=== PATIENT | female | born 1960 | race Caucasian/White ===

== ENCOUNTER 2018-03-06 13:50 | Observation (INO) | payer OTHER ==
[~2018-03-06] VITALS: Ht 167.6 cm; Wt 97.0 kg
[2018-03-06] VITALS (13 sets, daily range): BP systolic 104–154; BP diastolic 58–85
[2018-03-06 15:20] LABS: HEMATOCRIT 41.9 % (37.0-47.0); HEMOGLOBIN 14.2 gm/dL (12.0-15.0); MCH 32.4 pg (26.0-34.0); MCHC 33.9 g/dL (28.0-37.0); MCV 95.8 fL (80.0-100.0); MPV 8.2 fl. (7.2-11.1); RBC 4.37 mil/uL (4.20-5.00); RDW-CV 13.8 % (10.5-14.5)
[2018-03-06] MEDS ORDERED: ASPIR 8181 MG PO (15:29)
[2018-03-06] MEDS ORDERED: SYNTHROID50 MCG PO (15:30)
[2018-03-06] MEDS ORDERED: LIPITOR80 MG PO (15:30)
[2018-03-06] MEDS ORDERED: AMITRIPTYLINE H10 M3 PO (15:30)
[2018-03-06] MEDS ORDERED: METFORMIN HCL500 MG PO (15:30)
[2018-03-06] MEDS ORDERED: NEURONTIN600 MG PO (15:31)
[2018-03-06] MEDS ORDERED: CYMBALTA60 MG PO (15:31)
[2018-03-06] MEDS ORDERED: PLAVIX 75 MG TA75 M1 PO (15:31)
[2018-03-06] MEDS ORDERED: LOPRESSOR25 PO (15:32)
[2018-03-06] MEDS ORDERED: FISH OIL 1,001000 M2 PO (15:32)
[2018-03-06 15:33] LABS: ANION GAP 8 mmol/L (7-16); BUN 9 mg/dL (7-18); CALCIUM 9.1 mg/dL (8.5-10.1); CHLORIDE 101 mmol/L (98-107); CO2 26 mmol/L (21-32); CREATININE 0.8 mg/dL (0.6-1.3); GLUCOSE 117 mg/dL (70-99); POTASSIUM 3.4 mmol/L (3.5-5.1); SODIUM 135 mmol/L (136-145)
[2018-03-06 15:34] LABS: APTT 21.9 Seconds (25.0-31.3); PROTIME 9.9 Seconds (9.20-11.50)
[2018-03-06 15:37] LABS: ALBUMIN 3.6 g/dL (3.4-5.0); ALKALINE PHOSPHATASE 142 U/L (46-116); CHOLESTEROL 130 mg/dL (<200); HDL CHOLESTEROL 43 mg/dL (>40); LDL CHOLESTEROL 49 mg/dL (<100); SGOT 29 U/L (15-37); SGPT 49 U/L (30-65); TOTAL BILIRUBIN 0.5 mg/dL (<0.1-1.0); TOTAL PROTEIN 7.3 g/dL (6.4-8.2); TRIGLYCERIDE 190 mg/dL (<150); VLDL 38 mg/dL (<40)
[2018-03-06 15:39] LABS: SERUM ASSESSMENT Clear
[2018-03-06 16:36] LABS: CALCIUM 9.5 mg/dL (8.5-10.1); CREATININE 0.9 mg/dL (0.6-1.3); POTASSIUM 3.4 mmol/L (3.5-5.1)
--- NOTE | 2018-03-06 17:07 | EKG ---
[place] [address] ELECTROCARDIOGRAM REPORT Name: JACKIE PACK Room: [address] ADM IN M.R.#: [id number] Admission: 03/06/18 Attend Phys: Harry Garza MD Discharge: Date of : 62 Report #: [id number] THIS REPORT FOR: //name// [facility] Test Date: 2018-03-06 Test Time: 15:16:39 Pat Name: JACKIE PACK Department: Room: [facility] Gender: F Tools Administrator: AMBER : 1960 Requested By: Jason Choudhury Order Number: [id number] Jonna MD: Harry Garza Measurements Intervals [place] Rate: 68 P: 62 AL: 136 QRS: 35 QRSD: 96 T: 56 QT: 408 QTc: 434 Interpretive Statements Sinus rhythm No previous ECG available for comparison Electronically Signed On 03-06-2018 17:07:29 CDT by Harry Garza [email or web address] <ELECTRONICALLY SIGNED> By: Harry Garza MD, [facility] 03/06/18 1707 1516 1516 Harry Garza MD, FACC /EPI
[2018-03-06 18:39] LABS: CK-MB MASS 0.8 ng/mL (<0.5-3.6); TROPONIN-I LEVEL <0.06 ng/mL (<0.06)
--- NOTE | 2018-03-06 19:20 | NUR ---
RECEIVED REPORT FROM LINEWORKER AND ASSUMED CARE OF PT @ 2906.PT IS A/OX4,VSS,TRACING SR ON THE MONITOR.ASSESSMENT CHARTED.IV PATENT WITH FLUIDS INFUSING PER ORDERS.HAYS SECURE AND PATENT.PT IS CALM AND COOPERATIVE WITH NO C/O PAIN AT TIME OF ASSESSMENT.PT IS BEDREST UNTIL 0100.PT INFORMED OF PLAN OF CARE AND COMMUNICATES UNDERSTANDING.POST CATH VITALS TAKEN.CATH SITE CLEAN,DRY,AND INTACT.HOURLY ROUNDING COMPLETED FOR PT SAFETY.CALL LIGHT AND FALL PRECAUTIONS IN PLACE.WILL CONTINUE TO MONITOR FOR DURATION OF SHIFT.
[2018-03-07] VITALS: BP 122/58
--- NOTE | 2018-03-07 03:01 | NUR ---
ASSUMED CARE OF PT AT 1900 PT ALERT AND ORIENTED X4 VS AND ASSESSMENT STABLE PT RUNNING NSR ON THE MONITOR. PT R GROIN CATH SITE CDI WITHOUT DRANAGE SWELLING OR HEMATOMA POSITIVE CMS CHECKS TO RLE. PT DENIED ANY COMPLAINTS AND SLEPT THROUGH THE NIGHT. WILL CONTINUE PLAN OF CARE.
[2018-03-07 04:00] VITALS: BP 152/74
[2018-03-07 05:18] LABS: HEMATOCRIT 38.2 % (37.0-47.0); HEMOGLOBIN 12.8 gm/dL (12.0-15.0); MCH 32.4 pg (26.0-34.0); MCHC 33.6 g/dL (28.0-37.0); MCV 96.4 fL (80.0-100.0); MPV 8.4 fl. (7.2-11.1); RBC 3.96 mil/uL (4.20-5.00); RDW-CV 14.2 % (10.5-14.5); WBC 6.8 thou/uL (4.0-11.0)
[2018-03-07 05:40] LABS: CALCIUM 8.3 mg/dL (8.5-10.1); CREATININE 0.7 mg/dL (0.6-1.3); POTASSIUM 3.7 mmol/L (3.5-5.1); TOTAL BILIRUBIN 0.7 mg/dL (<0.1-1.0); TOTAL PROTEIN 6.3 g/dL (6.4-8.2); TROPONIN-I LEVEL 0.15 ng/mL (<0.06)
[2018-03-07 08:00] VITALS: BP 124/70
--- NOTE | 2018-03-07 08:35 | NUR ---
RECEIVED REPORT FROM SITA AND ASSUMED CARE OF PT @ 7848.PT IS A/O X4,VSS,TRACING SR ON THE MONITOR.ASSESSMENT CHARTED.IV PATENT WITH IVF INFUSING PER ORDERS.HAYS REMOVED DURING INSET CUTTER.CATH SITE RIGHT GROIN DRY AND INTACT WITH BLOOD ON GAUZE.NO HEMATOMA.CARDIOLOGY ASSESSED SITE AND OK PT FOR DISCHARGE.PT HAS NOT BEEN UP SINCE REMOVED FROM BEDREST.PT IS UP SBA ASSIST UNTIL FURTHER EVALUTAION. PT IS CALM AND COOPERATIVE WITH NO C/O PAIN AT TIMEO F ASSESSMENT.CALL LIGHT AND FALL PRECAUTIONS IN PLACE. WILL CONTINUE TO MONITOR.
[2018-03-07 08:46] VITALS: BP 124/70
[2018-03-07 10:22] VITALS: BP 124/70
[2018-03-07] MEDS ORDERED: BRILINTA90 MG PO (10:28)
[2018-03-07 11:45] VITALS: BP 127/48
--- NOTE | 2018-03-07 12:02 | EKG ---
[place] [address] ELECTROCARDIOGRAM REPORT Name: JOLENE PACKNE Room: [address] M.R.#: [id number] Admission: 03/06/18 Attend Phys: Harry Garza MD Discharge: Date of : 62 Report #: [id number] THIS REPORT FOR: //name// [facility] Test Date: 2018-03-06 Test Time: 18:18:55 Pat Name: JACKIE PACK Department: Room: [address] Gender: F Property Officer: RENETTA : 1960 Requested By: Jason Choudhury Order Number: [id number] Jonna MD: Tong Driscoll Measurements Intervals [place] Rate: 68 P: 74 DC: 153 QRS: 33 QRSD: 94 T: 51 QT: 426 QTc: 454 Interpretive Statements Sinus rhythm Abnormal R-wave progression, early transition Compared to ECG 03/06/2018 15:16:39 No significant changes Electronically Signed On 03-07-2018 12:02:31 CDT by Tong Driscoll [email or web address] <ELECTRONICALLY SIGNED> By: Tong Driscoll MD, [facility] 03/07/18 1202 17 17 Tong Driscoll MD, [facility] /EPI
--- NOTE | 2018-03-07 12:11 | EKG ---
[place] [address] ELECTROCARDIOGRAM REPORT Name: JOLENE PACKNE Room: [address] M.R.#: [id number] Admission: 03/06/18 Attend Phys: Harry Garza MD Discharge: Date of : 62 Report #: [id number] THIS REPORT FOR: //name// [facility] Test Date: 2018-03-07 Test Time: 08:00:04 Pat Name: JACKIE PACK Department: Room: [address] Gender: F Restuarant Crew Worker: : 1960 Requested By: Jason Choudhury Order Number: [id number] Jonna MD: Tong Driscoll Measurements Intervals [place] Rate: 96 P: 68 NH: 131 QRS: 18 QRSD: 100 T: 60 QT: 363 QTc: 459 Interpretive Statements Sinus rhythm Abnormal R-wave progression, early transition Compared to ECG 03/06/2018 15:16:39 No significant changes Electronically Signed On 03-07-2018 12:11:07 CDT by Tong Driscoll [email or web address] <ELECTRONICALLY SIGNED> By: Tong Driscoll MD, [facility] 03/07/18 1211 08 08 oTng Driscoll MD, [facility] /EPI
--- NOTE | 2018-03-07 12:57 | NUR ---
ECHO COMPLETED. PT OK FOR DISCHARGE.PAPERWORK COMPLETED AND GIVEN TO PT.SCRIPTS GIVEN WITH EDUCATION.CARDIOLOGY GAVE SAMPLES AND COUPON CARDS.IV REMOVED.HEART MONITOR REMOVED AND RETURNED TO NURSING STATION.CATH SITE DRESSING CHANGED.CLEAN,DRY, AND INTACT.ALL PERSONAL BELONGINGS PACKED AND TAKEN WITH PT.PT WALKED OUT BY NURSING STAFF TO PERSONAL VEHICLE.
--- NOTE | 2018-03-07 13:14 | 2DMMODE ---
[place] [address] 2 D/M-MODE ECHOCARDIOGRAM Name: JACKIE PACK Room: [address] Nancy Lai#: [id number] Admission: 03/06/18 Attend Phys: Harry Garza, Discharge: 03/07/18 Date of : 62 Date of Service: 03/07/18 1314 Report #: [id number] THIS REPORT FOR: //name// APPROVED REPORT Study performed: 03/07/2018 11:23:56 EXAM: Comprehensive 2D, Doppler, and color-flow Echocardiogram Patient Location: In-Patient Room #: [facility] Status: routine BSA: 2.05 HR: 73 bpm BP: 124/70 mmHg Rhythm: NSR Other Information Study Quality: Good Indications CAD Chest Pain 2D Dimensions IVSd: 11.20 (7-11mm) LVOT Diam: 18.69 (18-24mm) LVDd: 41.57 mm PWd: 8.37 (7-11mm) Ascending Ao: 32.09 (22-36mm) LVDs: 27.63 (25-40mm) Aortic Root: 28.43 mm Volumes Left Atrial Volume (Systole) LA ESV Index: 26.80 mL/m2 Aortic Valve AoV Peak Milton.: 1.77 m/s AO Peak Gr.: 12.48 mmHg LVOT Max P.16 mmHg AO Mean Gr.: 6.34 mmHg LVOT Mean P.79 mmHg LVOT Max V: 1.34 m/s AO V2 VTI: 36.60 cm LVOT Mean V: 0.91 m/s TEO (VTI): 2.10 cm2 LVOT V1 VTI: 28.05 cm Mitral Valve E/A Ratio: 1.03 MV Decel. Time: 201.28 ms [facility] [address] [place] [address] 2 D/M-MODE ECHOCARDIOGRAM Name: JACKIE PACK Room: [address]#: [id number] Admission: 03/06/18 Attend Phys: Harry Garza, Discharge: 03/07/18 Date of : 62 Date of Service: 03/07/18 1314 Report #: [id number] MV E Max Milton.: 1.06 m/s MV PHT: 58.37 ms MVA (PHT): 3.77 cm2 TDI E/Lateral E': 8.15 E/Medial E': 8.83 Medial E' Milton.: 0.12 m/s Lateral E' Milton.: 0.13 m/s Pulmonary Valve PV Peak Milton.: 1.05 m/s PV Peak Gr.: 4.42 mmHg Tricuspid Valve RAP Estimate: 5.00 mmHg TR Peak Gr.: 20.23 mmHg RVSP: 25.00 mmHg PA Pressure: 25.00 mmHg Left Ventricle The left ventricle is normal size. There is normal LV segmental wall motion. There is normal left ventricular wall thickness. Left ventricular systolic function is normal. The left ventricular ejection fraction is within the normal range. LVEF is 60-65%. The left ventricular diastolic function is normal. Right Ventricle The right ventricle is normal size. The right ventricular systolic function is normal. Atria The left atrium size is normal. The right atrium size is normal. Aortic Valve Mild aortic valve sclerosis. No aortic regurgitation is present. There is no aortic valvular stenosis. Mitral Valve The mitral valve is normal in structure. There is no mitral valve regurgitation noted. No evidence of mitral valve stenosis. Tricuspid Valve The tricuspid valve is normal in structure. Trace tricuspid regurgitation. No pulmonary hypertension. Pulmonic Valve The pulmonary valve is normal in structure. There [place] [address] 2 D/M-MODE ECHOCARDIOGRAM Name: JACKIE PACK [address]: [address]#: [id number] Admission: 03/06/18 Attend Phys: Harry Garza, Discharge: 03/07/18 Date of : 62 Date of Service: 03/07/18 1314 Report #: [id number] valvular regurgitation. Great Vessels The aortic root is normal in size. IVC is not well visualized. Pericardium There is no pericardial effusion. <Conclusion> Left ventricular systolic function is normal. The left ventricular ejection fraction is within the normal range. <ELECTRONICALLY SIGNED> By: Tong Driscoll MD, FACC 03/07/18 1314 1314 1314 Tong Driscoll MD, FACC /INF
--- NOTE | 2018-03-07 17:39 | H ---
[place] [address] HISTORY AND PHYSICAL Name: JACKIE PACK Room: [address] Nancy Lai#: [id number] Admission: 03/06/18 Attend Phys: Harry Garza MD Discharge: 03/07/18 Date of : 62 Report #: [id number] THIS REPORT FOR: //name// CC: MOHSEN Graza INDICATION: Unstable angina. HISTORY OF PRESENT ILLNESS: The patient is a very pleasant 57-year-old white female with known coronary artery disease. Two years ago, prior to some cervical spinal surgery, she was noted to have an abnormal stress test, prompting catheterization. She was found to have an 80% proximal right coronary artery stenosis. She did not at that time undergo intervention as she was scheduled to have surgery and felt to be stable enough for her surgery. She was lost in followup. Subsequent to that, she did not have any intervention. For the last several weeks, she has been having progressive chest discomfort and back discomfort. Cardiac risk factors include family history of atherosclerotic coronary artery disease, hyperlipidemia, hypertension, borderline diabetes and tobacco use. PAST MEDICAL HISTORY: 1. Coronary artery disease. 2. Type 2 diabetes mellitus. 3. Hypertension. 4. Hyperlipidemia. 5. Hypothyroidism. 6. History of TIA. 7. Cervical spinal fusion 2016. 8. Peripheral neuropathy. FAMILY HISTORY: The patient's father of a heart attack at age 41. The patient's mother has a history of mitral valve replacement. The patient's oldest brother has a history of hypertension and stroke. SOCIAL HISTORY: The patient smokes a pack of cigarettes daily for the past 40 years. Drinks alcohol occasionally. CURRENT MEDICATIONS: Aspirin 81 mg daily, levothyroxine 50 mcg daily, amitriptyline 50 mg daily, metformin 500 mg daily, Lipitor 80 mg daily, Plavix 75 mg daily, Neurontin 600 mg b.i.d., Cymbalta 60 mg daily, furosemide 20 mg daily, metoprolol tartrate 75 mg b.i.d., fish oil daily, potassium supplement daily. ALLERGIES: PENICILLIN, WHICH CAUSES RESPIRATORY DISTRESS. REVIEW OF SYSTEMS: She notes some slight weight gain with [place] [address] HISTORY AND PHYSICAL Name: JACKIE PACK Room: [address] Ming#: [id number] Admission: 03/06/18 Attend Phys: Harry Garza MD Discharge: 03/07/18 Date of : 62 Report #: [id number]. She admits some cough and occasional wheezing. She denies orthopnea or paroxysmal nocturnal dyspnea. She reports chest discomfort as outlined above. She denies palpitations. She denies edema. She reports some occasional heartburn, but no nausea, vomiting or diarrhea. She reports easy bruising. She denies any history of blood clots. A 14-point review of systems otherwise unremarkable. PHYSICAL EXAMINATION: VITAL SIGNS: Stable. Blood pressure 109/68, pulse 62 and regular. GENERAL: This is a pleasant lady in no distress. Mood and affect appropriate. HEENT: Extraocular muscles intact. Mucous membranes moist. NECK: Shows no jugular venous distention. There are no carotid bruits. CHEST: Reveals clear lung wagner without wheezes, rales or rhonchi. CARDIOVASCULAR: Reveals a regular rhythm with normal S1 and S2. I do not appreciate gallop or murmur. ABDOMEN: Reveals normal bowel sounds. The abdomen is soft, nontender. EXTREMITIES: Shows no edema. Peripheral pulses are 2+ and easily palpable. SKIN: Warm and dry. IMPRESSION AND RECOMMENDATIONS: 1. Coronary artery disease with symptoms to suggest unstable angina. Will undergo cardiac catheterization with probable intervention. Continue daily aspirin. Continue Plavix. 2. Hyperlipidemia, continue Lipitor 80 mg daily. 3. Hypertension, controlled on current regimen. 4. Diabetes per primary physician. 5. Smoking cessation encouraged for tobacco use. <ELECTRONICALLY SIGNED> By: Harry Garza MD, FACC 03/07/18 1739 1630 1734Harry Garza MD, FACC /nt
--- NOTE | 2018-03-08 10:49 | CARD ---
[address] [address] CARDIAC CATH REPORT Name: JACKIE PACK Room: [address] Nancy Lai#: [id number] Admission: 03/06/18 Attend Phys: Harry Garza MD Discharge: 03/07/18 Date of : 62 Report #: [id number] THIS REPORT FOR: //name// APPROVED REPORT Study performed: 03/06/2018 16:02:49 Patient Details Patient Status: In-Patient Room #: The patient is a 57 year-old female Event Personnel Jason Choudhury Sheet Music Salesperson, Lois Stewart RN Psychometrician, Brandt Plasencia (Tolu) Luisa Pulido Jessica RTR Monitor, Ale Jones BUS SYSTEM OPERATOR Monitor Procedures Performed Left Heart Cath w/or w/o Coronaries; percutaneous coronary intervention to the right coronary artery Indication Unstable angina Risk Factors Hypercholesterolemia Admission/Lab Medications/Medications given during procedure Aspirin, Platelet Aff. Inhib., Angiomax bolus and infusion Procedure Narrative The patient was brought electively to the Cardiac Catheterization Laboratory and was prepped and draped in a sterile manner. The right femoral was infiltrated with 2% Lidocaine subcutaneous anesthesia. A 6 Fr [place] sheath was inserted into the right femoral artery. Coronary angiography was performed using coronary diagnostic catheters. The right coronary system was accessed and visualized with a Diagnostic JR4 catheter. The left coronary system was accessed and visualized with a Diagnostic JL4 catheter. The left ventricle was accessed and visualized with a Diagnostic Straight Pigtail catheter. Left ventricular/Aortic Valve gradient assessed via catheter pullback. Left ventriculogram was performed in LASSITER projection. Pre-demployment femoral angiogram was performed . Closure device was deployed with a Fr 8Fr Angioseal. [place] [address] CARDIAC CATH REPORT Name: JACKIE PACK Room: [address]#: [id number] Admission: 03/06/18 Attend Phys: Harry Garza MD Discharge: 03/07/18 Date of : 62 Report #: [id number] Sedation start time: 16:23 Case end Time: 17:36 Fentanyl 75 mcg Versed 4 mg Fluoro Time: 16.7 minutes Dose: DAP 026880 cGycm2 1885 mGy Contrast Type and Amount: Visipaque 460 ml Coronary Angiography The patient's coronary anatomy is co- dominant. Diagnostic Cath Left Main 0% narrowing LAD 50% mid LAD narrowing Circumflex 40% midcircumflex narrowing with 50% distal stenosis Right Coronary Modest size codominant vessel with 80% tubular proximal stenosis and 90% mid vessel stenosis Left Ventriculography The left ventricle is normal in size with normal contractility. The left ventricular ejection fraction is estimated to be 65%. Left ventricular wall motion abnormalities are not present. There is no mitral insufficiency. Hemodynamics The aortic pressure is 149/73 mmHg with a mean of 101 mmHg. The left ventricular pressure is 146/8 mmHg with a mean of mmHg. The left ventricular end diastolic pressure is 10 mmHg. There was no gradient across the aortic valve upon pullback. PCI Technique Lesion Anticoagulation was achieved with Angiomax. Patient was preloaded with Angiomax IV 14 mg per kg. Percutaneous coronary intervention was performed on the mid right coronary artery. The lesion stenosis prior to intervention was 90% with JEAN PIERRE 3 flow. A 6Fr JR 4.0 SH Guide Catheter was used to engage the ostium. A IG: ProwaterFlex 180CM Interventional Guidewire was used to cross the lesion. BALLOON DILATION A Balloon catheter Mini Trek RX 2.0 X 12 was inserted and inflated up to 14.00atm for 11seconds. Additional Inflation: 14.00atm for 10seconds. Additional Inflation: 14.00atm for 11seconds. STENT DEPLOYMENT A drug-eluting stent [place] RX Stent 2.0X18mm was inserted and inflated up to 12atm for 18seconds. Additional Inflation: 16[place] [address] CARDIAC CATH REPORT Name: JACKIE PACK Room: [address] Nancy M.RPadmini#: [id number] Admission: 03/06/18 Attend Phys: Harry Garza MD Discharge: 03/07/18 Date of : 62 Report #: [id number] 11seconds. Additional Inflation: 18atm for 12seconds. POST STENT DEPLOYMENT BALLOON DILATION A Balloon catheter NC Trek RX 2.25x12 was inserted and inflated up to 15.00atm for 7seconds. Additional Inflation: 16.00atm for 8seconds. Final angiography reveals 10 % stenosis with JEAN PIERRE 3 flow. BALLOON DILATION A Balloon catheter was inserted and inflated up to 12.00atm for 13seconds. Additional Inflation: 12.00atm for 10seconds. STENT DEPLOYMENT A drug-eluting stent Jono RX Stent 2.0X18mm was inserted and inflated up to 8.00atm for 12seconds. Additional Inflation: 10.00atm for 10seconds. Additional Inflation: 11.00atm for 8seconds. PCI Technique Lesion 2 Percutaneous Coronary Intervention was performed on the proximal right coronary artery. The lesion stenosis prior to intervention was 80% with JEAN PIERRE 3 flow. Stent Deployment A drug-eluting stent [place] RX Stent 2.0X30mm was inserted and inflated up to Problemsatm for 15seconds. Post Stent Deployment Balloon Dilation A Balloon catheter NC Trek RX 2.25x12 was inserted and inflated up to 18atm for 15seconds. Final angiography reveals 10 % stenosis with JEAN PIERRE 3 flow. Comments Proximalmid right coronary artery was heavily calcified requiring significant lesion preparation prior to stent deployment Conclusion #1 significant coronary artery disease characterized by the following: A 50% mid LAD narrowing B 40% mid circumflex narrowing with 50% [place] [address] CARDIAC CATH REPORT Name: JACKIE PACK Room: [address] Nancy Lai#: [id number] Admission: 03/06/18 Attend Phys: Harry Garza MD Discharge: 03/07/18 Date of : [birth year] Report #: [id number] C modest size codominant right coronary artery with 80% tubular proximal calcified stenosis and 90% mid vessel stenosis #2 normal left ventricular systolic function, estimated ejection fraction being 65% #3 mild systemic systolic hypertension #4 successful percutaneous coronary intervention with deployment of sequential drug-eluting stents at the sites of 80% proximal and 90% mid vessel stenosis of the right coronary artery with 10% residual narrowing at both sites following stent deployment and JEAN PIERRE-3 flow to the distal vessel. Recommendations Cardiac Risk Reduction Program Aggressive Medical Therapy Medications Administered Aspirin (any) Ticagrelor Diagnostic Cath Approved by: Jason Choudhury MD Date/Time: 03/08/2018 10:47:01 <ELECTRONICALLY SIGNED> By: Jason Choudhury MD, FACC 03/08/18 1049 1049 1049Jason Choudhury MD, FACC /INF
--- NOTE | 2018-03-10 12:31 | D ---
[address] [address] DISCHARGE SUMMARY Name: JACKIE PACK Room: [address] Nancy Lai#: [id number] Admission: 03/06/18 Attend Phys: Harry Garza MD Discharge: 03/07/18 Date of : 62 Report #: [id number] THIS REPORT FOR: //name// CC: MOHSEN Garza DATE OF SERVICE: 03/07/2018 INDICATION: Unstable angina and coronary artery disease. DISCHARGE DIAGNOSES: 1. Unstable angina. 2. Coronary artery disease. 3. Hypertension. 4. Type 2 diabetes mellitus. 5. Hyperlipidemia. 6. Chronic tobacco use. PROCEDURES DURING THE HOSPITALIZATION: 1. Left and right coronary angiography. 2. Left heart catheterization. 3. Left ventriculography. 4. Percutaneous coronary intervention to the right coronary artery. HOSPITAL COURSE: The patient was brought to the hospital with progressive chest discomfort suggestive of unstable angina. Catheterization revealed 80% proximal to mid right coronary artery narrowing. The patient underwent percutaneous coronary intervention with drug-eluting stent placement to the proximal to mid right coronary artery with excellent result. The patient tolerated the procedure well without complication. At the time of catheterization, she was noted to have normal left ventricular systolic function. She had no complications with the procedure and is being discharged uneventfully. DISCHARGE MEDICATIONS: Will include amitriptyline 50 mg at bedtime, aspirin 81 mg daily, atorvastatin 80 mg daily, Effient 10 mg daily, fish oil 1000 mg daily, Cymbalta 60 mg daily, gabapentin 600 mg b.i.d., levothyroxine 50 mcg daily, Glucophage 500 mg b.i.d., metoprolol tartrate 75 mg b.i.d. DISPOSITION: The patient will follow up with her nurse practitioner in 1-2 weeks and follow up with myself in 2 months. <ELECTRONICALLY SIGNED> By: Harry Garza MD, FACC 03/10/18 1231 0816 1815Microsalee Garza MD, FACC /nt
== END 2018-03-07 13:00 | disposition home or self-care (01) ==
LOC: M.2W 13:50 → M.TBA-CV 14:45 → M.2W 14:45
PROVIDERS: Internal Medicine; Registered Nurse; ADMIT Internal Medicine Cardiovascular Disease
DX: I25.110 Atherosclerotic heart disease of native coronary artery with unstable angina pectoris (principal); E78.5 Hyperlipidemia, unspecified; E11.42 Type 2 diabetes mellitus with diabetic polyneuropathy; I10 Essential (primary) hypertension; E03.9 Hypothyroidism, unspecified; G62.9 Polyneuropathy, unspecified; E78.00 Pure hypercholesterolemia, unspecified; M43.22 Fusion of spine, cervical region; Z79.01 Long term (current) use of anticoagulants; Z79.82 Long term (current) use of aspirin; F17.210 Nicotine dependence, cigarettes, uncomplicated; Z72.89 Other problems related to lifestyle; Z86.73 Personal history of transient ischemic attack (TIA), and cerebral infarction without residual deficits

== ENCOUNTER 2018-11-26 13:14 | Observation (INO) | payer OTHER ==
[2018-11-26] VITALS: BP 117/59
[~2018-11-26] VITALS: Ht 152.4 cm; Wt 94.4 kg
[~2018-11-26 13:14] MED LIST: AMITRIPTYLINE H10 M3 PO; ASPIR 8181 MG PO; BRILINTA90 MG PO; CYMBALTA60 MG PO; FISH OIL 1,001000 M2 PO; LIPITOR80 MG PO; LOPRESSOR25 PO; METFORMIN HCL500 MG PO; NEURONTIN600 MG PO; PLAVIX 75 MG TA75 M1 PO; SYNTHROID50 MCG PO
[2018-11-26 13:18] VITALS: BP 142/75
[2018-11-26 13:48] LABS: ABSOLUTE BASOPHILS 0.1 thou/uL (0.0-0.2); ABSOLUTE EOSINOPHILS 0.3 thou/uL (0.0-0.7); ABSOLUTE LYMPHOCYTES 2.8 thou/uL (0.8-5.3); ABSOLUTE MONOCYTES 0.5 thou/uL (0.0-1.2); BASOPHILS 1.3 %; EOSINOPHILS 3.2 %; HEMATOCRIT 41.9 % (37.0-47.0); HEMOGLOBIN 14.5 gm/dL (12.0-15.0); LYMPHOCYTES 31.8 %; MCH 32.2 pg (26.0-34.0); MCHC 34.6 g/dL (28.0-37.0); MCV 92.9 fL (80.0-100.0); NUCLEATED RBCS 0 /100WBC; PLATELET COUNT* 240 thou/uL (150-400); POLYS 57.7 %; RBC 4.51 mil/uL (4.20-5.00); RDW-CV 14.1 % (10.5-14.5); WBC 8.7 thou/uL (4.0-11.0)
[2018-11-26 13:52] LABS: ANION GAP 12 mmol/L (7-16); BUN 9 mg/dL (7-18); CALCIUM 9.3 mg/dL (8.5-10.1); CHLORIDE 102 mmol/L (98-107); CO2 24 mmol/L (21-32); CREATININE 0.8 mg/dL (0.6-1.3); GLUCOSE 133 mg/dL (70-99); SODIUM 138 mmol/L (136-145)
[2018-11-26 13:54] LABS: PROTIME 10.2 Seconds (9.20-11.50)
[2018-11-26 14:08] LABS: ALBUMIN 3.7 g/dL (3.4-5.0); ALKALINE PHOSPHATASE 167 U/L (46-116); LIPASE 290 U/L (73-393); NT-PRO BRAIN NAT PEPTIDE 103 pg/mL (<300); SGOT 36 U/L (15-37); SGPT 56 U/L (30-65); TOTAL BILIRUBIN 0.6 mg/dL (<0.1-1.0); TOTAL PROTEIN 7.4 g/dL (6.4-8.2); TROPONIN-I LEVEL <0.06 ng/mL (<0.06)
[2018-11-26 15:16] VITALS: BP 144/73
--- NOTE | 2018-11-26 15:19 | EKG ---
[place] [address] ELECTROCARDIOGRAM REPORT Name: JOLENE PACKNE Room: [place] [address] ADM IN [facility]#: [id number] Admission: 11/26/18 Attend Phys: Hannah Bedoya MD Discharge: Date of : 62 Report #: [id number] THIS REPORT FOR: //name// [facility] ED Test Date: 2018-11-26 Test Time: 13:19:29 Pat Name: JACKIE PACK Department: Room: [facility] Gender: Operations Team Leader: [facility] : 1960 Requested By: Wisam Garcia Order Number: [id number] MD: Tong Driscoll Measurements Intervals [place] Rate: 59 P: 80 MN: 147 QRS: 52 QRSD: 93 T: 59 QT: 411 QTc: 408 Interpretive Statements Sinus rhythm Compared to ECG 03/07/2018 08:00:04 No significant changes Electronically Signed On 11-26-2018 15:18:58 CDT by Tong Driscoll [email or web address] <ELECTRONICALLY SIGNED> By: Tong Driscoll MD, [facility] 11/26/18 1518 1319 1319 Tong Driscoll MD, FACC /EPI
--- NOTE | 2018-11-26 17:11 | NUR ---
PATIENT ADMITTED TO THE UNIT AT 1516 FROM ER. AOX4 UPON ARRIVAL. DENIED CHEST PAIN UPON ADMISSION. ADMISSION HISTORY AND ASSESSMENT COMPLETED. DR JOYNER IN TO SEE PATIENT. STATED PATIENT CAN EAT DINNER, BUT WILL BE NPO AFTER MIDNIGHT FOR CARDIAC CATH TOMORROW. NURSE AND PHYSICIAN EDUCATED PATIENT TO NOTIFY STAFF IF CHEST PAIN RETURNS. PATIENT AGREEABLE TO CURRENT PLAN OF CARE. NO NEW CONCERNS NOTED.
[2018-11-26 20:00] VITALS: BP 135/58
[2018-11-27] VITALS (20 sets, daily range): BP systolic 104–147; BP diastolic 53–89
--- NOTE | 2018-11-27 05:18 | NUR ---
PT SLEPT WELL OVERNIGHT. DENIES CHEST PAIN, CO MILD ACHE IN LEFT ARM CONTINUES. TELE SR, AM LABS DRAWN. HS ACCUCHECK. VSS. HAS BEEN NPO SINCE MIDNIGHT FOR CARDIAC CATH TODAY. LFA SL, IVF TO BE STARTED THIS MORNING. AOX4,UP AD ABI. ABLE TO USE CALL LITE AND MAKE NEEDS KNOWN.
[2018-11-27 08:44] LABS: HEMATOCRIT 40.1 % (37.0-47.0); HEMOGLOBIN 13.7 gm/dL (12.0-15.0); MCH 31.9 pg (26.0-34.0); MCHC 34.2 g/dL (28.0-37.0); MCV 93.3 fL (80.0-100.0); MPV 9.1 fl. (7.2-11.1); RBC 4.3 mil/uL (4.20-5.00); RDW-CV 13.9 % (10.5-14.5); WBC 6.5 thou/uL (4.0-11.0)
[2018-11-27 09:14] LABS: ANION GAP 11 mmol/L (7-16); BUN 10 mg/dL (7-18); CALCIUM 9.2 mg/dL (8.5-10.1); CHLORIDE 105 mmol/L (98-107); CHOLESTEROL 149 mg/dL (<200); CO2 24 mmol/L (21-32); CREATININE 0.8 mg/dL (0.6-1.3); GLUCOSE 103 mg/dL (70-99); HDL CHOLESTEROL 33 mg/dL (>40); LDL CHOLESTEROL 63 mg/dL (<100); MAGNESIUM 1.9 mg/dL (1.8-2.4); POTASSIUM 3.7 mmol/L (3.5-5.1); SERUM ASSESSMENT Clear; SODIUM 140 mmol/L (136-145); TC:HDL 4.5 Ratio (Not establshd); TRIGLYCERIDE 266 mg/dL (<150); TROPONIN-I LEVEL <0.06 ng/mL (<0.06); VLDL 53 mg/dL (<40)
[2018-11-27] MEDS ORDERED: PROTONIX40 M1 PO (11:19)
--- NOTE | 2018-11-27 11:23 | NUR ---
ASSUMED CARE OF PT AT 0730. PT RESTING IN BED. PT A&0X4, DENIES ANY PAIN OR SHORTNESS OF BREATH AT THIS TIME. DENIES ANY CHEST PAIN. PT TO HAVE HEART CATH TODAY. NPO. CONSENT SIGNED AND PLACED IN FRONT OF CHART. PT TRACING SR ON THE ELECTROENCEPHALOGRAM TECHNOLOGIST. ON RA SAT UPPER 90'S. PT UP AD ABI. IVF. CARDIO CONSULT IN PLACE. PT GOAL FOR TODAY IS HEART CATH AND POSSIBLE DISCHARGE LATER TODAY PENDING CATH RESULTS. AM ASSESSMENT CHARTED. MEDICATIONS PER JUL. PT REPOSITIONS SELF. HOURLY ROUNDING OBSERVED. BED IN LOW POSITION. CALL LIGHT WITHIN REACH. WILL CONTINUE PLAN OF CARE.
--- NOTE | 2018-11-27 12:13 | NUR ---
MET WITH PT TO DISCUSS HOME SITUATION/DC PLANNING. PT LIVES WITH SPOUSE. SHE IS INDEPENDENT AND ACTIVE, USES NO EQUIPMENT. DENIES ANY DC NEEDS. WILL FOLLOW
--- NOTE | 2018-11-27 16:27 | NUR ---
NO ACUTE CHANGES THROUGHOUT SHIFT. REFER TO CHARTING. PT HAD HEART CATH TODAY- 1 STENT PLACED IN THE RCA. ACCESS INTO THE RIGHT WRIST- VASC BAND IN PLACE. POST CARDIAC CATH ASSESSMENT AND VITALS CHARTED. PT DENIES ANY PAIN OR SHORTNESS OF BREATH THIS AFTERNOON. CONTINUES TO TRACE SR ON THE COURIER. ON RA SAT UPPER 90'S. IVF. PROBABLE DISCHARGE HOME TOMORROW 11/28. MEDICATIONS PER JUL. PT REPOSITIONS SELF. HOURLY ROUNDING OBSERVED. BED IN LOW POSITION. CALL LIGHT WITHIN REACH. WILL CONTINUE PLAN OF CARE.
--- NOTE | 2018-11-27 16:36 | EKG ---
[place] [address] ELECTROCARDIOGRAM REPORT Name: JACKIE PACK Room: [address] M.R.#: [id number] Admission: 11/26/18 Attend Phys: Hannah Bedoya MD Discharge: Date of : 62 Report #: [id number] THIS REPORT FOR: //name// [facility] Test Date: 2018-11-27 Test Time: 07:47:18 Pat Name: JACKIE PACK Department: Room: [place] [address] Gender: F Electrolytic De Scaler: [facility] : 1960 Requested By: Tong Driscoll Order Number: [id number] Jonna MD: Harry Garza Measurements Intervals [place] Rate: 72 P: 69 [place]: 143 QRS: 33 QRSD: 92 T: 53 QT: 404 QTc: 443 Interpretive Statements Sinus rhythm Abnormal R-wave progression, early transition Compared to ECG 11/26/2018 13:19:29 No significant changes Electronically Signed On 11-27-2018 16:36:11 CDT by Harry Garza [email or web address] <ELECTRONICALLY SIGNED> By: Harry Garza MD, [facility] 11/27/18 1636 0747 Harry Garza MD, [facility] /EPI
--- NOTE | 2018-11-27 16:39 | EKG ---
[place] [address] ELECTROCARDIOGRAM REPORT Name: JACKIE PACK Room: [address] M.R.#: [id number] Admission: 11/26/18 Attend Phys: Hannah Bedoya MD Discharge: Date of : 62 Report #: [id number] THIS REPORT FOR: //name// [facility] Test Date: 2018-11-27 Test Time: 14:29:33 Pat Name: JACKIE PACK Department: Room: [place] [address] Gender: F Director Of Therapy Services: [facility] : 1960 Requested By: Tong Driscoll Order Number: [id number] Jonna MD: Harry Garza Measurements Intervals [place] Rate: 69 P: 75 [place]: 144 QRS: 24 QRSD: 93 T: 51 QT: 412 QTc: 442 Interpretive Statements Sinus rhythm Compared to ECG 11/26/2018 13:19:29 No significant changes Electronically Signed On 11-27-2018 16:38:52 CDT by Harry Garza [email or web address] <ELECTRONICALLY SIGNED> By: Harry Garza MD, [facility] 11/27/18 1638 1429 142 Harry Garza MD, FACC /EPI
--- NOTE | 2018-11-27 18:11 | CARD ---
[address] [address] CARDIAC CATH REPORT Name: JACKIE PACK Room: [address] Nancy Lai#: [id number] Admission: 11/26/18 Attend Phys: Hannah Bedoya MD Discharge: Date of : 62 Report #: [id number] THIS REPORT FOR: //name// APPROVED REPORT Study performed: 11/27/2018 12:16:13 Patient Details Patient Status: In-Patient Room #: The patient is a 58 year-old female Event Personnel Harry Garza Failure Analysis Technician, Diann Corcoran RN Monitor, Brooke Messer RN Magnetic Resonance Technologist, Lucy Vang RTR Scrub, Brandt Plasencia (R) Yamila Pulido David Sec Accountant Procedures Performed Art Access - R radial artery Left Heart Cath w/or w/o Coronaries PAO Place w/wo Plasty Single RCA Indication Unstable angina , Chest pain Risk Factors Coronary Artery Disease, Diabetes Tobacco History () Previous Procedures/Diagnoses Previous PCI Admission/Lab Medications/Medications given during procedure Glycoprotein IllbIlla Inhibitors, Heparin Unfract. Procedure Narrative The patient was brought electively to the Cardiac Catheterization Laboratory and was prepped and draped in a sterile manner. The right wrist was infiltrated with 2% Lidocaine subcutaneous anesthesia. A Slender [place] sheath was inserted into the right radial artery. Coronary angiography was performed using coronary diagnostic catheters. The right coronary system was accessed and visualized with a Diagnostic catheter. The left coronary system was accessed and visualized with a Diagnostic catheter. The left ventricle was accessed and visualized with a Diagnostic catheter. Left ventricular/Aortic Valve gradient assessed via catheter pullback. Left ventriculogram was performed in [place] [address] CARDIAC CATH REPORT Name: JACKIE PACK [address]: [address]#: [id number] Admission: 11/26/18 Attend Phys: Hannah Bedoya MD Discharge: Date of : 62 Report #: [id number] was deployed with a 6 Fr vascband. The patient tolerated the procedure well and there were no complications associated with the procedure. There was no hematoma. Intraoperative Conscious Sedation Sedation start time: 12:59 Case end Time: 2:05 Fentanyl 75.0 mcg Versed 4 mg Dose: 1476 mGy Contrast Type and Amount: Omnipaque 215 ml Coronary Angiography The patient's coronary anatomy is co- dominant. Diagnostic Cath Left Main Normal. LAD Normal in the proximal mid and distal portion. Somewhat small in caliber in the mid and distal portion. Diagonal 1 Normal and relatively small in caliber. Diagonal 2 Normal and relatively small in caliber. Circumflex 30% narrowing in the midportion and 50% narrowed distally after the takeoff of a large marginal branch. OM1 10% plaque proximally in a moderate size branching vessel. OM2 Formal. Right Coronary There are stents from the proximal to distal right coronary artery. There is approximately 70% in-stent restenosis in the proximal portion of the stented area and 90% stenosis in the midportion of the stented area. R PDA Normal. RPLV Very small and normal. Left Ventriculography The left ventricle is normal in size with normal contractility. The left ventricular ejection fraction is estimated to be 65-70%. Hemodynamics The aortic pressure is 123/71 mmHg with a mean of 91 mmHg. The left ventricular pressure is 154/12 mmHg with a mean of mmHg. The left ventricular end diastolic pressure is 22 mmHg. There was no gradient across the aortic valve upon pullback. Pullback from the left ventricle to the aorta revealed no gradient [place] [address] CARDIAC CATH REPORT Name: JACKIE PACK Room: [address] M.Tolu.#: [id number] Admission: 11/26/18 Attend Phys: Hannah Bedoya MD Discharge: Date of : 62 Report #: [id number] PCI Technique Lesion Anticoagulation was achieved with Heparin. bolus of iv aggrastat given Patient was preloaded with Brillinta. Percutaneous coronary intervention was performed on the proximal right coronary artery. The lesion stenosis prior to intervention was 90% with JEAN PIERRE 3 flow. [facility] Catheter was used to engage the rca ostium. A IG: BMW 190cm Interventional Guidewire was used to cross the lesion. BALLOON DILATION A Balloon catheter Trek RX 2.25 X 15 was inserted and inflated up to 10.00atm for 13seconds. Repeat angiography revealed the following post-dilatation results: 40% stenosis. Additional Inflation: 12.00atm for 10seconds. Additional Inflation: 16.00atm for 17seconds. STENT DEPLOYMENT A drug-eluting stent Xience Marii 2.5X38mm was inserted and inflated up to 7.00atm for 16seconds. Repeat angiography revealed the following post-stent deployment results: 0% stenosis. Additional Inflation: 11.00atm for 9seconds. Final angiography reveals 0 % stenosis with JEAN PIERRE 3 flow. Conclusion 1. In-stent restenosis involving the proximal and mid right coronary artery as outlined above. 2. Nonocclusive coronary disease noted in the circumflex marginal system. 3. Normal left ventricular systolic function. 4. Moderately elevated left ventricular end-diastolic pressure. 5. Acute on chronic diastolic heart failure. 6. successful placement of a long drug eluting stent in the proximal and mid rca. A Marii stent was placed instead of an Jono stent which was placed 9 months ago. In addition, the stent was dilated to 2.5 mm instead of 2.25 mm. Recommendations 1. Continue aggressive risk factor modification. 2. New treatment for underlying diastolic heart failure. <ELECTRONICALLY SIGNED> By: Tong Driscoll MD, [facility] 11/27/181810 10 Dmerritt Driscoll MD, FAC /INF
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
[2018-11-28] VITALS: BP 136/62
[2018-11-28 04:00] VITALS: BP 153/75
[2018-11-28 04:49] LABS: HEMATOCRIT 39.8 % (37.0-47.0); HEMOGLOBIN 13.4 gm/dL (12.0-15.0); MCH 31.4 pg (26.0-34.0); MCHC 33.7 g/dL (28.0-37.0); MCV 93.2 fL (80.0-100.0); MPV 8.6 fl. (7.2-11.1); RBC 4.27 mil/uL (4.20-5.00); RDW-CV 14.1 % (10.5-14.5); WBC 7.5 thou/uL (4.0-11.0)
[2018-11-28 05:22] LABS: CALCIUM 8.5 mg/dL (8.5-10.1); CREATININE 0.8 mg/dL (0.6-1.3); POTASSIUM 4.1 mmol/L (3.5-5.1)
[2018-11-28 05:26] LABS: TROPONIN-I LEVEL 1.6 ng/mL (<0.06)
--- NOTE | 2018-11-28 05:58 | NUR ---
PT IS ABLE TO COMMUNICATE HER NEEDS TO STAFF EFFECTIVELY. SHE HAS DENIED THE NEED FOR PAIN MEDICATION UP TO THIS TIME. RIGHT WRIST CATH SITE DRESSING C/D/I. LIKELY DISCHARGE TODAY.
[2018-11-28 07:10] VITALS: BP 156/80
--- NOTE | 2018-11-28 08:45 | NUR ---
INITAL ASSESSMENT COMPLETED CHARTED. VSS. TRACING SR ON MONITOR. PT DENIES SOA, PAIN, CP, N/V/D, DIZZINESS. HOURLY ROUNDING FOR PT SAFETY. CLWR
[2018-11-28 08:51] VITALS: BP 145/67
[2018-11-28 09:37] VITALS: BP 145/67
--- NOTE | 2018-11-28 10:44 | EKG ---
[place] [address] ELECTROCARDIOGRAM REPORT Name: JOLENE PACKNE Room: [address] M.R.#: [id number] Admission: 11/26/18 Attend Phys: Hannah Bedoya MD Discharge: Date of : 62 Report #: [id number] THIS REPORT FOR: //name// [facility] Test Date: 2018-11-28 Test Time: 08:29:55 Pat Name: JACKIE PACK Department: Room: [place] [address] Gender: F Legal Administrative Assistant: : 1960 Requested By: Tong Driscoll Order Number: [id number] Jonna MD: Tong Driscoll Measurements Intervals [place] Rate: 75 P: 63 [place]: 144 QRS: 27 QRSD: 92 T: 53 QT: 395 QTc: 442 Interpretive Statements Sinus rhythm Compared to ECG 11/27/2018 14:29:33 No significant changes Electronically Signed On 11-28-2018 10:44:33 CDT by Tong Driscoll [email or web address] <ELECTRONICALLY SIGNED> By: Tong Driscoll MD, [facility] 11/28/18 1044 0829 8 Tong Driscoll MD, FACC /EPI
[2018-11-28] MEDS ORDERED: WELLBUTRIN 100100 MG PO (11:18)
[2018-11-28 11:50] VITALS: BP 84/52
--- NOTE | 2018-11-28 11:58 | NUR ---
Nutrition: Pt admitted with chest pain. Heart Healthy diet. Wt: 218#. "Prediabetes" per H&P. Pt will likely discharge today. Mild nutrition risk.
== END 2018-11-28 12:05 | disposition home or self-care (01) ==
LOC: M.ERS 13:14 → M.2W 14:26 → M.TBA-ER 14:26 → M.2W 14:26
PROVIDERS: Emergency Medicine; Internal Medicine Cardiovascular Disease; ADMIT Internal Medicine
DX: I25.110 Atherosclerotic heart disease of native coronary artery with unstable angina pectoris (principal); G89.29 Other chronic pain; M54.9 Dorsalgia, unspecified; I11.0 Hypertensive heart disease with heart failure; I50.33 Acute on chronic diastolic (congestive) heart failure; E78.5 Hyperlipidemia, unspecified; E11.9 Type 2 diabetes mellitus without complications; K21.9 Gastro-esophageal reflux disease without esophagitis; I25.2 Old myocardial infarction; F17.210 Nicotine dependence, cigarettes, uncomplicated; Z79.82 Long term (current) use of aspirin; Z79.84 Long term (current) use of oral hypoglycemic drugs; Z79.899 Other long term (current) drug therapy; Z86.73 Personal history of transient ischemic attack (TIA), and cerebral infarction without residual deficits; Z95.5 Presence of coronary angioplasty implant and graft

== ENCOUNTER → 2020-07-01 | Outpatient (CLI) | payer BC ==
[~2020-07-01] MED LIST changes: +PROTONIX40 M1 PO; +WELLBUTRIN 100100 MG PO
== END ==
LOC: M.ULTRA 12:26
PROVIDERS: ATTEND Internal Medicine Cardiovascular Disease
DX: I65.23 Occlusion and stenosis of bilateral carotid arteries (principal)

== ENCOUNTER → 2021-06-26 | Outpatient (CLI) | payer OTHER ==
--- NOTE | 2021-06-26 15:18 | 2DMMODE ---
[place] [address] 2 D/M-MODE ECHOCARDIOGRAM Name: JACKIE PACK Room: [employer]#: [id number] Admission: 06/26/21 Attend Phys: Harry Garza, Discharge: Date of : 62 Date of Service: 06/26/21 1517 Report #: [id number] THIS REPORT FOR: cc: MOHSEN CHACON DEBORAH ANN Blick,Tong Barker MD [facility] ~ APPROVED REPORT Study performed: 06/26/2021 13:50:36 EXAM: Comprehensive 2D, Doppler, and color-flow Echocardiogram Patient Location: Out-Patient BSA: 1.90 HR: 93 bpm BP: 120/70 mmHg Other Information Study Quality: Good Indications CAD 2D Dimensions IVSd: 11.04 (7-11mm) LVOT Diam: 20.70 (18-24mm) LVDd: 41.72 mm PWd: 11.66 (7-11mm) Ascending Ao: 30.66 (22-36mm) LVDs: 28.00 (25-40mm) Aortic Root: 28.77 mm Volumes Left Atrial Volume (Systole) LA ESV Index: 14.60 mL/m2 Aortic Valve AoV Peak Milton.: 1.80 m/s AO Peak Gr.: 13.00 mmHg LVOT Max P.03 mmHg AO Mean Gr.: 7.20 mmHg LVOT Mean P.03 mmHg LVOT Max V: 1.33 m/s AO V2 VTI: 30.91 cm LVOT Mean V: 0.78 m/s TEO (VTI): 2.69 cm2 LVOT V1 VTI: 24.67 cm AI Hamblen: 1.45 m/s2 AI PHT: 583.87 [place] [address] 2 D/M-MODE ECHOCARDIOGRAM Name: JACKIE PACK Room: [employer]#: [id number] Admission: 06/26/21 Attend Phys: Harry Garza, Discharge: Date of : 62 Date of Service: 06/26/21 1517 Report #: [id number] Mitral Valve E/A Ratio: 0.68 MV Decel. Time: 267.28 ms MV E Max Milton.: 0.59 m/s MV PHT: 77.51 ms MVA (PHT): 2.84 cm2 TDI E/Lateral E': 5.36 E/Medial E': 5.36 Medial E' Milton.: 0.11 m/s Lateral E' Milton.: 0.11 m/s Pulmonary Valve PV Peak Milton.: 1.15 m/s PV Peak Gr.: 5.28 mmHg Left Ventricle The left ventricle is normal size. There is normal LV segmental wall motion. There is normal left ventricular wall thickness. Left ventricular systolic function is normal. The left ventricular ejection fraction is within the normal range. LVEF is 60-65%. Grade I - abnormal relaxation pattern. Right Ventricle The right ventricle is normal size. The right ventricular systolic function is normal. Atria The left atrium size is normal. The right atrium size is normal. Aortic Valve Mild aortic valve sclerosis. Mild aortic regurgitation. There is no aortic valvular stenosis. Mitral Valve The mitral valve is normal in structure. There is no mitral valve regurgitation noted. No evidence of mitral valve stenosis. Tricuspid Valve The tricuspid valve is normal in structure. There is no tricuspid valve regurgitation noted. Pulmonic Valve The pulmonary valve is normal in structure. There is no pulmon[place] [address] 2 D/M-MODE ECHOCARDIOGRAM Name: JACKIE PACK Room: [employer]#: [id number] Admission: 06/26/21 Attend Phys: Harry Garza, Discharge: Date of : 62 Date of Service: 06/26/21 1517 Report #: [id number] Great Vessels The aortic root is normal in size. IVC is normal in size and collapses >50% with inspiration. Pericardium There is no pericardial effusion. <Conclusion> LVEF is 60-65%. Mild aortic valve sclerosis. Mild aortic regurgitation. <ELECTRONICALLY SIGNED> By: Tong Driscoll MD, [facility] 06/26/21 151 16 16 Tong Driscoll MD, [facility] /INF
--- NOTE | 2021-06-27 13:00 | CARDNUC ---
[place] [address] CARDIAC NUCLEAR IMAGING REPORT Name: JACKIE PACK Room: [facility]#: [id number] Admission: 06/26/21 Attend Phys: Harry Garza, Discharge: Date of : 62 Date of Service: 06/27/[address] [facility] Report #: [id number] THIS REPORT FOR: cc: MOHSEN CHACON DEBORAH ANN Biggs, F. Douglas MD [facility] ~ APPROVED REPORT Study performed: 06/26/2021 14:43:34 Exam: Nuclear Stress Test Indication: CAD s/p PCI Patient Location: Out-Patient Stress Nurse: Vanessa Hyde RN Ht: 5 ft 6 in Wt: 179 lbs BSA: 1.91 m2 BMI: 28.88 Medical History Medical History: CAD s/p stent, Diabetic Noninsulin, HTN, Hyperlipidemia, Smoking Medications: asa-81, atorvastatin, metoprolol, ntg Allergies: penicillin Cardiac Risk Factors: Age, Current Smoker, FHX of CAD, Diabetes (non-insulin), HTN, Hyperlipidemia Previous Cardiac Procedures: PCI Exercise History: Indeterminate Stress Test Details Stress Test: Pharmacologic stress testing performed using 0.4 mg of regadenoson per 5 mL given IV over 10 seconds. Reason for pharmacologic stress test: physical limitation. HR Resting HR: 79 bpm Max Heart Rate (APMHR): 161 bpm Max HR Achieved: 101 bpm Target HR (85% APMHR): 136 bpm % of APMHR: 62 Recovery HR: 92 bpm HR response to stress: Normal HR response to stress BP Resting BP: 158/83 mmHg Max BP: 118/[place] [address] CARDIAC NUCLEAR IMAGING REPORT Name: JACKIE PACK Room: [facility]#: [id number] Admission: 06/26/21 Attend Phys: Harry Garza, Discharge: Date of : 62 Date of Service: 06/27/[address] [facility] Report #: [id number] BP response to stress: Normal blood pressure response to stress. ECG Resting ECG: Sinus Rhythm, normal EKG Stress ECG: Sinus Rhythm, normal EKG ST Change: None Arrhythmia: None Recovery ECG: Sinus Rhythm, normal EKG Recovery ST Change: None Recovery Arrhythmia: None Clinical Reason for Termination: Completed protocol Stress Symptoms: None Stress ECG Conclusion Normal hemodynamic response to pharmacologic stress. Clinical: Non-ischemic Non-diagnostic pharmacologic stress due to failure to attain target HR. NM EXAM: Myocardial Perfusion REST/STRESS Resting Data Rest SPECT myocardial perfusion imaging was performed in supine position 30 minutes following the intravenous injection of 10.5 mCi of Tc-99m Sestamibi. Time of rest injection: 13:40 The images were gated to evaluate regional wall motion and calculate left ventricular ejection fraction. Administration Route: IV Administration Site: Left AC Pharmacologic Stress Pharmacologic stress test was performed by injecting Regadenoson 0.4 mg IV push followed by the intravenous injection of 32.9 mCi of Tc-99m Sestamibi. Time of stress injection: 1445 Administration Route: IV Administration Site: Left Wrist Heart Rate at time of stress injection: 98 bpm. Gated Stress SPECT was performed 45 minutes after stress injection. The images were gated to evaluate regional wall motion and calculate left ventricular ejection fraction. Prone [place] [address] CARDIAC NUCLEAR IMAGING REPORT Name: JACKIE PACK CHRISTOPHER Room: [facility]#: [id number] Admission: 06/26/21 Attend Phys: Harry Garza, Discharge: Date of : 62 Date of Service: 06/27/[address] [facility] Report #: [id number] Study Data At rest, the left ventricular ejection fraction was 69%.. Post stress, the left ventricular ejection was 69%.. SSS: 0 SRS: 0 SDS: 0 TID = 1.09. Perfusion Normal left ventricular perfusion. Normal perfusion on both the stress and rest images. Images were reviewed using Need Fixedis. Wall Motion Normal left ventricular wall motion. Nuclear Conclusion ECG Findings: non-diagnostic Clinical Findings: negative for ischemia Nuclear Findings: negative for ischemia Exercise Capacity: not assessed Left Ventricular Function: normal Risk Study: low Normal study. No scintigraphic evidence for myocardial ischemia or scar. <Conclusion> Normal hemodynamic response to pharmacologic stress. Clinical: Non-ischemic Non-diagnostic pharmacologic stress due to failure to attain target HR. <ELECTRONICALLY SIGNED> By: Cristina Callejas MD, FACC 06/27/21 1300 1300 1300 Cristina Callejas MD, FACC /INF
== END ==
LOC: M.CRD 06-14 08:23
PROVIDERS: ATTEND Internal Medicine Cardiovascular Disease
DX: I25.10 Atherosclerotic heart disease of native coronary artery without angina pectoris (principal); E78.2 Mixed hyperlipidemia; I10 Essential (primary) hypertension; E11.9 Type 2 diabetes mellitus without complications; I65.22 Occlusion and stenosis of left carotid artery